=== PATIENT | female | born 1975 | race African-American/Black ===

== ENCOUNTER 2016-12-07 07:59 | Emergency (ER) | payer SELFPAY ==
[2016-12-07] MEDS ORDERED: Acetaminophen 500 MG TAB ONE (08:29)
== END 2016-12-07 10:17 | disposition home or self-care (01) ==
LOC: ERS 07:59
DX: J20.9 Acute bronchitis, unspecified (principal); I10 Essential (primary) hypertension; F17.210 Nicotine dependence, cigarettes, uncomplicated
CPT/HCPCS: 87081; 87430; 99283

== ENCOUNTER 2019-02-01 13:12 | Emergency (ER) | payer OTHER, SELFPAY ==
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
== END 2019-02-01 15:58 | disposition home or self-care (01) ==
LOC: ERS 13:12
DX: S62.635A Displaced fracture of distal phalanx of left ring finger, initial encounter for closed fracture (principal); I10 Essential (primary) hypertension; F90.9 Attention-deficit hyperactivity disorder, unspecified type; F17.210 Nicotine dependence, cigarettes, uncomplicated; Y04.0XXA Assault by unarmed brawl or fight, initial encounter

== ENCOUNTER 2019-02-18 19:39 | Emergency (ER) | payer OTHER ==
--- NOTE | 2019-02-18 20:08 | RAD ---
Exam: Chest one view HISTORY:Cough Comparison: 03/09/2016 FINDINGS: Cardiac silhouette: Normal Aorta: Unremarkable Pulmonary vessels: Normal Costophrenic angles: Clear LUNGS: No masses or consolidation. Pneumothorax: None Osseous abnormalities: None IMPRESSION: No acute cardiopulmonary process.
== END 2019-02-18 21:41 | disposition home or self-care (01) ==
LOC: ERS 19:39
DX: B34.9 Viral infection, unspecified (principal); I10 Essential (primary) hypertension; F90.9 Attention-deficit hyperactivity disorder, unspecified type; Z87.891 Personal history of nicotine dependence
CPT/HCPCS: 71045

== ENCOUNTER 2022-02-20 10:39 | Emergency (ER) | payer OTHER ==
[2022-02-20] MEDS ORDERED: diphenhydrAMINE 50 MG/ML VIAL ONE (11:34)
[2022-02-20] MEDS ORDERED: Metoclopramide HCl 10 MG/2 ML VIAL ONE (11:34)
[2022-02-20 12:00] LABS: BHCG - Serum Negative (NEGATIVE); Pregs Control Background? CLEAR/WHITE (CLR/WHITE); Pregs Control Bar Appear? YES (CONTROL BAR)
[2022-02-20 12:08] LABS: #Eosinphils 0.1 thou/uL (0.0-0.7); #Lymphocytes 0.5 thou/uL (1.20-3.40); #Monocytes 0.8 thou/uL (0.11-0.59); #Neutrophils 6.7 thou/uL (1.40-6.50); %Eosinophils 1.5 % (0.0-10.0); %Lymphocytes 5.6 % (21.0-51.0); %Monocytes 10.4 % (0.0-10.0); %Neutrophils 82.5 % (42.0-75.0); Hemoglobin 9.5 g/dL (12.0-16.0); Hypochromia SLIGHT = 6-15 cells (100X) (0-5/hpf); MDiff Complete? YES; Mean Corpuscular HGB CONC 29.5 g/dL (32.0-36.0); Mean Corpuscular Hemoglobin 20.1 pg (27.0-31.0); Mean Corpuscular Volume 68.3 fl (78.0-98.0); Mean Platelet Volume 7.2 fL (7.4-10.4); Microcytosis SLIGHT = 6-15 cells (100X) (0-5/hpf); Platelet Count 249 10x3/uL (130-400); Platelet Morphology Comment Appears Adequate; Polychromasia SLIGHT = 2-3 cells (100X) (0-2/hpf); RBC Distribution Width 21.7 % (11.5-14.5); Red Blood Cell (RBC) Count 4.73 mill/uL (4.20-5.40); Target Cells SLIGHT = 2-5 cells (100X) (0-1/hpf); White Blood Cell (WBC) Count 8.1 10x3/uL (4.8-10.8)
[2022-02-20 12:19] LABS: ALT (SGPT) 34 U/L (8-55); AST (SGOT) 39 U/L (5-34); Albumin 3.9 g/dL (3.5-5.0); Alkaline Phosphatase 66 U/L (40-110); Anion Gap 12 mmol/L (10-20); BUN (Urea Nitrogen) 8 mg/dL (7.0-18.7); Bilirubin, Total 0.4 mg/dL (0.2-1.2); Calc. Creatinine Clearance 0 mL/min (70-130); Calcium 8.8 mg/dL (7.8-10.44); Carbon Dioxide 24 mmol/L (22-29); Chloride 103 mmol/L (98-107); Estimated GFR 112; Globulin 3.9 g/dL (2.4-3.5); Glucose 84 mg/dL (70-105); Potassium 3.4 mmol/L (3.5-5.1); Protein, Total 7.8 g/dL (6.0-8.3); Sodium 136 mmol/L (136-145)
== END 2022-02-20 14:22 | disposition home or self-care (01) ==
LOC: ERS 10:39
DX: R51.9 Headache, unspecified (principal); I10 Essential (primary) hypertension; D64.9 Anemia, unspecified; J10.1 Influenza due to other identified influenza virus with other respiratory manifestations; R90.82 White matter disease, unspecified; F17.210 Nicotine dependence, cigarettes, uncomplicated
CPT/HCPCS: 36415; 70450; 80053; 84484; 84703; 85025; 87804; 93005; 96374; 96375; J1200; J2765

== ENCOUNTER 2023-12-23 14:53 | Outpatient (CLI) | payer OTHER | END 2023-12-23 14:54 | disposition home or self-care (01) | LOC: BICMAMMO 14:53 | PROVIDERS: ATTEND Nurse Practitioner Family | DX: Z12.31 Encounter for screening mammogram for malignant neoplasm of breast (principal); Z80.3 Family history of malignant neoplasm of breast | CPT/HCPCS: 77063; 77067 ==